=== PATIENT | male | born 1965 | race Caucasian/White ===

== ENCOUNTER 2025-01-17 23:19 | Emergency (ER) | payer MEDICAID, SELFPAY ==
[2025-01-17 23:19] VITALS: BP 144/89; PULSE 96; RESP 16; TEMP 36.4; O2SAT 95; BMI 30.7
[2025-01-18 00:19] VITALS: PULSE 90; RESP 16; O2SAT 97
[2025-01-18 00:24] LABS: Mucous, Urine 0 SEEN /hpf (<or=2+); Red Blood Cells-Urine 0 SEEN /hpf (0-5)
[2025-01-18 00:29] LABS: Color, Urine Straw (Yellow); Glucose, Dipstick Normal (Normal); Ketone-Dipstick Negative (Negative); Leukocyte Esterase-Dipstick Negative /ul (Negative); Nitrite-Dipstick Negative (Negative); Occult Blood-Urine Negative /ul (Negative); Protein-Dipstick Negative (Negative); Specific Gravity, Urine 1.010 (1.002-1.030); Urine Bilirubin Dipstick Negative (Negative)
[2025-01-18 00:29] LABS: Hematocrit 40.4 % (40-54); Hemoglobin 14.2 g/dL (13.0-16.5); Immature Granulocytes Count 0.010 X10^3/uL (0.0-0.0); Mean Corp Hgb Conc 35.1 g/dL (32-36); Mean Corpuscular Volume 95.1 fL (80-94); Mean Platelet Vol. 10.2 fl (6.2-12.0); NRBC Flagged by Analyzer 0 % (0-5); Platelet Count 150 K/mm3 (150-450); RBC Distribution Width CV 13.0 % (11.6-14.6); RBC Distribution Width SD 45.2 fl (35.1-43.9); Red Blood Count 4.25 M/mm3 (4.6-6.2); White Blood Count 3.6 K/mm3 (4.4-11.0)
--- NOTE | 2025-01-18 00:33 | CT_ITS ---
PROCEDURE: BRAIN/HEAD WITHOUT CONTRAST 01/18/2025 REASON FOR EXAM: DELUSIONS TECHNIQUE: Procedure Code: CTBR Modality: CT Procedure: BRAIN/HEAD WITHOUT CONTRAST Coronal and Sagittal reconstruction series were provided. One or more dose reduction techniques were used (e.g., Automated exposure control, adjustment of the mA and/or kV according to patient size, use of iterative reconstruction technique. RADIATION DOSE SUMMARY: CTDI Vol 44.99 mGy DLP :846.73 mGycm COMPARISON: none FINDINGS: The visualized brain parenchyma shows normal appearance. No focal parenchymal abnormalities are demonstrated. Manuel-white matter differentiation is maintained. Normal CT appearance of the posterior fossa structures. No intracerebral or extra-axial hemorrhage. No midline shifts or deformity. Normal size and configuration of the cerebral ventricles. Prominent fronto-parietal extra-axial CSF spaces. No definite calvarial fractures. The osseous structures in the skull base are unremarkable apart from mild left mastoiditis. Paranasal sinuses are unremarkable. CT/Brain/Head without Contrast IMPRESSION: No intracerebral or extra-axial hemorrhage. No acute cerebrovascular insult. If clinical symptoms persist, further evaluati on with MRI may be considered as clinically warranted. [facility]
[2025-01-18 00:37] LABS: Squamous Epithelial Cells - UA 0-5 SEEN /hpf (0-5)
[2025-01-18 00:53] LABS: Barbiturate Urine NEGATIVE (< 200 ng/mL); Benzodiazepine Urine NEGATIVE (< 200 ng/mL); PCP Urine NEGATIVE (< 25 ng/mL); THC Urine NEGATIVE (< 50 ng/mL)
[2025-01-18 00:53] LABS: AST(SGOT) 60 U/L (<=37); Alanine Aminotransfer ALT/SGPT 110 U/L (<=46); Albumin, Serum 4.5 g/dL (3.5-5.0); Alcohol, Blood (Medical)-Serum 96.3 mg/dL (<=10.0); Alkaline Phosphatase 70 U/L (40-129); Anion Gap 14 (5-15); BUN 6 mg/dL (4-19); BUN/Creat Ratio 8.7 RATIO (10-20); Bilirubin, Direct 0.30 mg/dL (0.00-0.30); Calcium,Total 9.7 mg/dL (7.6-11.0); Carbon Dioxide 21.6 mmol/L (21.0-32.0); Chloride 105 mmol/L (98-108); Estimated Creatinine Clearance 123.03 ml/min (50-250); Globulin 3.3 g/dL (2.2-4.2); Glucose 148 mg/dL (70-99); Potassium 3.5 mmol/L (3.3-5.1)
[2025-01-18 00:53] LABS: Ammonia 25.0 umol/L (16-60)
--- NOTE | 2025-01-18 01:48 | PCA ---
FAXED OVER PATIENTS CHART, LABS, AND FACESHEET TO CRISIS
--- NOTE | 2025-01-18 04:45 | EX.ED.DYSGE1 ---
HPI History of Present Illness Chief Complaint: Mental Health Informant: patient, family and police/small piece cutter Narrative Narrative: Patient is a 59-year-old male with history of alcoholism. According to family he typically sticks to himself and does not reach out. They state that over the past few days he has had an abrupt change in his behavior as he has now been showing up at her house multiple times throughout the week. They state that they are not able to call him because he keeps telling them that the phones are bugged. On top of this family reports that he has delusions such as replying to Ember emails and then answering his reply as if it was the sender and not himself who initially wrote the initial post. On top of this they state he is living in the garage and refuses to enter into a home. It is because of these changes in his behavior with the introduction of paranoia and delusions that concerned the family and that is why they contacted police and had him brought to the hospital for evaluation. The patient states that he simply wanted to be left alone and he feels that the others should mind their own business. He denies any homicidal or suicidal ideation [facility] Medical History unable to obtain Home Medications ?Medication ?Instructions ?Recorded ?Last Taken ?Type NK 01/17/25 Unknown History Allergy/AdvReac Type Severity Reaction Status Date / Time No Known Allergies Allergy Verified 01/17/25 23:19 Family History no significant family his Surgical History (Updated 01/17/25 @ 23:41 by Makayla Cid) H/O anterior cruciate ligament surgery Social History Smoking Status: Never smoker ROS ROS ED Constitutional Constitutional ED: Denies chills or fever(s) ENT ENT ED: Denies sore throat Cardiovascular Cardiovascular: Denies chest pain, palpitations or racing heartbeat Respiratory/Chest Respiratory/Chest: Denies cough or dyspnea Gastrointestinal Gastrointestinal: Denies abdominal pain, diarrhea, nausea or vomiting Genitourinary Genitourinary ED: Denies dysuria Musculoskeletal Musculoskeletal: Denies myalgias Integumentary Denies rash Neurologic Neurologic: Denies headache(s) Hematologic/Lymphatic Hematologic/Lymphatic: Denies easy bleeding or easy bruising EXAM Physical Exam Const Vital Signs: 01/17/25 23:19 01/18/25 00:19 Temperature 97.5 F L Temperature Source Temporal Pulse Rate 96 90 Respiratory Rate 16 16 Blood Pressure 144/89 H Blood Pressure Mean 107 Pulse Ox 95 97 Oxygen Delivery Method Room Air Room Air Positive well nourished and well developed General Appearance ED: well developed; Negative for pallor HEENT HEENT Narrative: Normocephalic atraumatic Eyes PERRL and EOMs intact bilaterally General Eye ED: Negative for scleral icterus Neck supple and no JVD Resp normal respiratory effort and clear to auscultation bilaterally Cardio regular rate and regular rhythm Rate: other Other Details: Radial and carotid pulses are equal and symmetric GI normal to inspection, nondistended, normoactive bowel sounds, non-tender, non-distended and no masses GI Narrative: No voluntary guarding or rigidity or pulsatile mass No ascites/fluid wave noted Auscultation: normoactive bowel sounds Palpation: soft Extremity normal to inspection Neuro oriented x3 and CN's II-XII intact bilaterally Sensorium / Orientation: alert Psych Psych Narrative: Patient has a flat affect Skin no rashes or lesions noted General Skin Exam: Negative for jaundice or pallor MDM MDM MDM Narrative Medical decision making narrative: Patient arrived to the ER mildly hypertensive otherwise with stable vitals. The patient did not provide much information other than he felt that he should have just been left alone it would not elaborate on the reported delusions and paranoia brought up by family. With family reporting this was an abrupt change in his mental condition I did elect to check for potential cause such as brain mass on CT scan signs of infection within the urine or potentially cirrhosis with hepatic encephalopathy. Workup confirmed alcohol within his system but he is clinically sober at a value of under 100. Otherwise labs revealed no clinically significant findings and his head CT showed no bleed or mass. Therefore he was medically cleared and he was evaluated by crisis. Crisis center feels that with family is concerned about paranoia and delusions and the fact that the patient does not appear to be caring for himself as he is living in a garage that they agree his safest option is placement. At this time he will need a dual treatment facility based on his history of alcohol abuse. The patient does not have any findings of DTs at this time. In order to prevent progression of this he will be given IV phenobarbital. At this time the patient is hemodynamically stable he is medically cleared and is otherwise safe for transfer/placement to a psychiatric center. History & Record Review Discussion w/independent historian: Patient and Family Lab Data Attestation: I reviewed the patient's lab results. Labs: Laboratory Results - last 24 hr 01/17/25 01/17/25 01/18/25 23:27 23:55 00:26 WBC 3.6 L RBC 4.25 L Hgb 14.2 Hct 40.4 MCV 95.1 H MCH 33.4 H MCHC 35.1 RDW Std Deviation 45.2 H RDW Coeff of Alyssia 13.0 Plt Count 150 MPV 10.2 Immature Gran % (Auto) 0.300 Neut % (Auto) 48.9 Lymph % (Auto) 35.6 Ransom % (Auto) 12.2 H Eos % (Auto) 2.2 Baso % (Auto) 0.8 Absolute Neuts (auto) 1.8 L Absolute Lymphs (auto) 1.29 Nucleated RBC % 0 Sodium 141 Potassium 3.5 Chloride 105 Carbon Dioxide 21.6 Anion Gap 14 BUN 6 Creatinine 0.72 Estim Creat Clear Calc 123.03 Est GFR (MDRD) Non-Af 106 BUN/Creatinine Ratio 8.7 L Glucose 148 H Calcium 9.7 Total Bilirubin 0.56 Direct Bilirubin 0.30 AST 60 H ALT 110 H Alkaline Phosphatase 70 Ammonia 25.0 Total Protein 7.8 Albumin 4.5 Globulin 3.3 Urine Color Straw Urine Clarity Clear Urine pH 6.0 Ur Specific [place] 1.010 Urine Protein Negative Urine Glucose (UA) Normal Urine Ketones Negative Urine Occult Blood Negative Urine Nitrite Negative Urine Bilirubin Negative Urine Urobilinogen Normal Ur Leukocyte Esterase Negative Urine RBC 0 SEEN Urine WBC 0-5 SEEN Ur Squamous Epith Cells 0-5 SEEN Urine Bacteria RARE Urine Mucus 0 SEEN Urine Opiates Screen NEGATIVE U Buprenorphine Qual NEGATIVE Ur Oxycodone Screen NEGATIVE Urine Methadone Screen NEGATIVE Urine Fentanyl Screen NEGATIVE Ur Barbiturates Screen NEGATIVE Ur Phencyclidine Scrn NEGATIVE Ur Amphetamines Screen PRESUMPTIVE POSITIVE U Benzodiazepines Scrn NEGATIVE Urine Cocaine Screen NEGATIVE U Cannabinoids Screen NEGATIVE Ethyl Alcohol 96.3 H Radiography Diagnostic Testing: Clinical Impression(s) from Imaging Studies Brain CT 01/18/25 00:33 IMPRESSION: No intracerebral or extra-axial hemorrhage. No acute cerebrovascular insult. If clinical symptoms persist, further evaluation with MRI may be considered as clinically warranted. Reading Location: [place] [id number] Management Discussion w/another healthcare provider: Behavioral health Discharge Plan Triage Chief Complaint: Mental Health ED Provider: Bull Donovan Dx/Rx/DC Orders Clinical Impression: Acute paranoia, Delusions, Alcohol abuse Prescriptions: No Action NK Primary Care Provider: Care Physician,No Primary Referrals: Care Physician,No Primary [Primary Care Provider, Medical] Print Language: Malay Disposition Disposition: Psychiatric Hospital or Unit Discharge [facility]: [facility]
[2025-01-18 06:45] VITALS: BP 147/75; PULSE 64; RESP 18; O2SAT 95
[2025-01-18 07:07] VITALS: BP 147/75; PULSE 64; RESP 18; TEMP 36.6; O2SAT 95
== END 2025-01-18 08:04 ==
PROVIDERS: Emergency Provider Emergency Medicine; Visit Provider Emergency Medicine
DX: F22 Delusional disorders (principal); F10.10 Alcohol abuse, uncomplicated
CPT/HCPCS: 70450; 80048; 80076; 80307; 81001; 82077; 82140; 85025; 96374; 99285; A4216